=== PATIENT | female | born 1970 | race Caucasian/White ===

== ENCOUNTER 2016-09-29 09:34 | Emergency (ER) | payer OTHER ==
[~2016-09-29 09:34] MED LIST: DIOVAN PO; TOPROL XL50 MG PO
== END 2016-09-29 10:13 | disposition home or self-care (01) ==
LOC: SED 09:34
DX: M13.872 Other specified arthritis, left ankle and foot (principal); R03.0 Elevated blood-pressure reading, without diagnosis of hypertension; Z79.899 Other long term (current) drug therapy
CPT/HCPCS: 99283